=== PATIENT | female | born 1975 | race Caucasian/White ===

== ENCOUNTER 2021-06-09 10:39 | Day surgery (SDC) | payer OTHER, SELFPAY ==
[~2021-06-09] VITALS: Ht 142.2 cm; Wt 52.2 kg
[2021-06-09] MEDS ORDERED: fentaNYL citrate 0.05 MG/ML VIAL ONE (12:11)
[2021-06-09] MEDS ORDERED: diphenhydrAMINE 50 MG/ML VIAL ONE (12:11)
[2021-06-09] MEDS ORDERED: LIDOCAINE 2% 100 MG/5 ML UJET TP ONE ×2 (12:11→12:35)
[2021-06-09] MEDS ORDERED: MIDAZOLAM 5 MG/5 ML VIAL ONE (12:11)
[2021-06-09] MEDS ORDERED: MIDAZOLAM 2 MG/2 ML VIAL IVP ONE (12:35)
[2021-06-09] MEDS ORDERED: fentaNYL citrate 0.05 MG/ML VIAL IVP ONE (12:35)
== END 2021-06-09 14:31 | disposition home or self-care (01) ==
LOC: MFCC 10:39 → MDS 10:39
PROVIDERS: ATTEND Internal Medicine Gastroenterology
DX: D64.9 Anemia, unspecified (principal); Z96.642 Presence of left artificial hip joint; Z79.899 Other long term (current) drug therapy; Z20.822 Contact with and (suspected) exposure to COVID-19
CPT/HCPCS: 45378; 81025; 87426; J2250; J3010; J1200